=== PATIENT | female | born 1965 | race Caucasian/White ===

== ENCOUNTER → 2020-11-26 | Outpatient (CLI) | payer BC ==
--- NOTE | 2020-11-27 08:56 | RAD ---
EXAM: Right wrist, 3 views. HISTORY: Pain. COMPARISON: None. FINDINGS: 3 views of the right wrist are obtained. There is no acute fracture, dislocation or subluxa tion. There is triscaphe joint space narrowing and subchondral sclerosis. IMPRESSION: 1. No acute osseous finding. 2. Mild triscaphe joint osteoarthritis. Electronically signed by: Krista Dawn MD (11/27/2020 8:53 AM) [id number]
== END ==
LOC: PMG 13:16
PROVIDERS: ATTEND Nurse Practitioner Family
DX: M19.031 Primary osteoarthritis, right wrist (principal)
CPT/HCPCS: 73110

== ENCOUNTER 2021-08-25 13:06 | Emergency (ER) | payer OTHER, BC ==
[~2021-08-25] VITALS: Ht 167.6 cm; Wt 78.0 kg
[2021-08-25 13:14] VITALS: BP 164/84
[2021-08-25] MEDS ORDERED: NAPROXEN 500 MG TABLET PO ONE (13:30)
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
== END 2021-08-25 13:45 | disposition home or self-care (01) ==
LOC: ER 13:06
DX: S00.83XA Contusion of other part of head, initial encounter (principal); S00.03XA Contusion of scalp, initial encounter; V89.2XXA Person injured in unspecified motor-vehicle accident, traffic, initial encounter; Y93.I9 Activity, other involving external motion; Y92.89 Other specified places as the place of occurrence of the external cause; Y99.8 Other external cause status
CPT/HCPCS: 99283